=== PATIENT | male | born 1970 | race Caucasian/White ===

== ENCOUNTER 2018-01-26 14:53 | Emergency (ER) | payer OTHER, MEDICARE ==
[2018-01-26] MEDS ORDERED: DEXTROSE 50%-WATER 50 ML DISP.SYRIN IV ONE ×2 (15:32→16:05)
== END 2018-01-26 17:26 | disposition home or self-care (01) ==
LOC: EDH 14:53
DX: N47.2 Paraphimosis (principal); I50.9 Heart failure, unspecified; Z88.2 Allergy status to sulfonamides; Z88.0 Allergy status to penicillin; Z91.040 Latex allergy status; Z88.6 Allergy status to analgesic agent; Z21 Asymptomatic human immunodeficiency virus [HIV] infection status; Z72.0 Tobacco use
CPT/HCPCS: 54450; 99284; J7070 ×2

== ENCOUNTER → 2018-01-26 | Outpatient (CLI) | payer OTHER, MEDICARE ==
[~2018-01-26] MED LIST: ANDRO GEL; DUONEB IH; EMTR1TAB11 PO; ETRA200T PO; PRENATAL VITAMIN PO; RALT400T PO; SOMA6VIA SQ; TEMA15CA5 PO; VALA500T38 PO; ZOLP5TAB2 PO
== END | disposition home or self-care (01) ==
LOC: RAH 10:13
PROVIDERS: ATTEND Internal Medicine Gastroenterology
DX: R13.10 Dysphagia, unspecified (principal); R63.3 Feeding difficulties
CPT/HCPCS: G8996; G8997; G8998; 74230; 92611

== ENCOUNTER 2018-12-01 09:10 | Day surgery (SDC) | payer OTHER, MEDICARE ==
[~2018-12-01] VITALS: Ht 172.7 cm; Wt 74.9 kg
[~2018-12-01 09:10] MED LIST changes: +BOTULINUM TOXIN TYPE A 100 UNITS/VIAL INJ SCH; +SODIUM CHLORIDE 0.9% 1000ML 1,000 ML IV ONE
[2018-12-01] MEDS ORDERED: DRONABINOL (10:13)
[2018-12-01] MEDS ORDERED: [UNRECOGNIZED DRUG - OTHER] (10:13)
[2018-12-01] MEDS ORDERED: SOMATROPIN PO (10:13)
[2018-12-01] MEDS ORDERED: LIDOCAINE (10:13)
[2018-12-01] MEDS ORDERED: CITIRIZINE (10:13)
[2018-12-01] MEDS ORDERED: AMITREX (10:13)
[2018-12-01] MEDS ORDERED: TIVICAY (10:13)
[2018-12-01] MEDS ORDERED: MELA1TAB17 PO (10:13)
[2018-12-01 10:19] VITALS: BP 125/75
[2018-12-01] MEDS ORDERED: PROPOFOL 10 MG/ML 20ML VIAL IV ONE ×2 (10:26)
[2018-12-01 10:49] VITALS: BP 91/44
[2018-12-01 10:53] VITALS: BP 91/44
[2018-12-01 10:58] VITALS: BP 100/56
[2018-12-01 11:04] VITALS: BP 105/58
[2018-12-01 11:11] VITALS: BP 111/74
== END 2018-12-01 11:30 | disposition home or self-care (01) ==
LOC: DAH 09:10 → ENDO 09:10
PROVIDERS: ATTEND Internal Medicine
DX: K22.2 Esophageal obstruction (principal); K20.9 Esophagitis, unspecified; K31.89 Other diseases of stomach and duodenum; I11.0 Hypertensive heart disease with heart failure; I50.9 Heart failure, unspecified; K21.9 Gastro-esophageal reflux disease without esophagitis; F32.9 Major depressive disorder, single episode, unspecified; Z85.46 Personal history of malignant neoplasm of prostate; Z79.899 Other long term (current) drug therapy; Z98.890 Other specified postprocedural states; G47.30 Sleep apnea, unspecified; Z88.8 Allergy status to other drugs, medicaments and biological substances; Z88.2 Allergy status to sulfonamides; Z88.0 Allergy status to penicillin
CPT/HCPCS: 43236; 43239; 93005; A4606; J0585; J2704 ×2; J7030

== ENCOUNTER 2019-12-27 05:56 | Day surgery (SDC) | payer OTHER, MEDICARE ==
[~2019-12-27] VITALS: Ht 172.7 cm; Wt 73.5 kg
[~2019-12-27 05:56] MED LIST changes: +AMITREX; -BOTULINUM TOXIN TYPE A 100 UNITS/VIAL INJ SCH; +CITIRIZINE; +DRONABINOL; -ETRA200T PO; +LIDOCAINE; +MELA1TAB17 PO; -RALT400T PO; -SOMA6VIA SQ; +SOMATROPIN PO; -TEMA15CA5 PO; +TIVICAY; -VALA500T38 PO; +VALA500T42 PO; -ZOLP5TAB2 PO; +[UNRECOGNIZED DRUG - OTHER]
[2019-12-27 07:31] VITALS: BP 105/60
[2019-12-27] MEDS ORDERED: MV-M1TAB20 PO (07:43)
[2019-12-27] MEDS ORDERED: DARU1TAB PO (07:43)
[2019-12-27] MEDS ORDERED: SOMA6VIA SQ (07:43)
[2019-12-27] MEDS ORDERED: BOTULINUM TOXIN TYPE A 100 UNITS/VIAL INJ SCH (08:30)
[2019-12-27] MEDS ORDERED: PROPOFOL 10 MG/ML 20ML VIAL IV ONE (08:38)
[2019-12-27] MEDS ORDERED: IPRATROPIUM/ALBUTEROL SULFATE 3 ML SOLUTION IH ONE (09:05)
--- NOTE | 2019-12-27 09:15 | NUR ---
PT RECEIVED A DUO - NEBS TREATMENT PER PROTOCOL.
--- NOTE | 2019-12-27 09:30 | NUR ---
PT STEVE DUE NEBS WELL. PT LEFT VIA WHEELCHAIR IN PVT CAR, NO COMPLICATIONS UPON D/C. D/C INSTRUCTIONS GIVEN TO FAMILY FRIEND. V/S STABLE NO COMPLICATIONS.
== END 2019-12-27 09:30 | disposition home or self-care (01) ==
LOC: ENDO 05:56 → DAH 05:56 → ENDO 09:30
PROVIDERS: ATTEND Internal Medicine
DX: K22.2 Esophageal obstruction (principal); R13.10 Dysphagia, unspecified; K21.9 Gastro-esophageal reflux disease without esophagitis; F17.210 Nicotine dependence, cigarettes, uncomplicated; B20 Human immunodeficiency virus [HIV] disease; I11.0 Hypertensive heart disease with heart failure; I50.9 Heart failure, unspecified; F32.9 Major depressive disorder, single episode, unspecified; G47.30 Sleep apnea, unspecified; Z88.0 Allergy status to penicillin; Z88.2 Allergy status to sulfonamides; Z88.1 Allergy status to other antibiotic agents; Z88.5 Allergy status to narcotic agent; Z91.040 Latex allergy status; Z91.048 Other nonmedicinal substance allergy status; Z98.890 Other specified postprocedural states; Z82.49 Family history of ischemic heart disease and other diseases of the circulatory system; Z79.899 Other long term (current) drug therapy; Z83.3 Family history of diabetes mellitus; Z82.3 Family history of stroke; Z80.0 Family history of malignant neoplasm of digestive organs
CPT/HCPCS: 43236; 43239; 43249; 94640; A4215; A4221; A4222; A4223; A4606; A4620; A4663; J0585; J2704; J7030

== ENCOUNTER 2020-01-11 06:23 | Day surgery (SDC) | payer OTHER, MEDICARE ==
[~2020-01-11] VITALS: Ht 170.2 cm; Wt 70.3 kg
[~2020-01-11 06:23] MED LIST changes: -AMITREX; -ANDRO GEL; +CETI10TA57 PO; -CITIRIZINE; +DARU1TAB PO; -DRONABINOL; -DUONEB IH; -EMTR1TAB11 PO; -LIDOCAINE; -MELA1TAB17 PO; +MV-M1TAB20 PO; +PANT40TA25 PO; -PRENATAL VITAMIN PO; -VALA500T42 PO; -[UNRECOGNIZED DRUG - OTHER]
[2020-01-11] MEDS ORDERED: SODIUM CHLORIDE 0.9% 1000ML 1,000 ML IV ONE (06:29)
[2020-01-11 07:49] VITALS: BP 116/63
[2020-01-11] MEDS ORDERED: PROPOFOL 10 MG/ML 20ML VIAL IV ONE (08:53)
[2020-01-11 09:05] VITALS: BP 103/62
[2020-01-11 09:10] VITALS: BP 108/64
[2020-01-11 09:15] VITALS: BP 112/68
== END 2020-01-11 09:30 | disposition home or self-care (01) ==
LOC: DAH 06:23 → ENDO 06:23
PROVIDERS: ATTEND Internal Medicine Gastroenterology
DX: Z12.11 Encounter for screening for malignant neoplasm of colon (principal); K57.30 Diverticulosis of large intestine without perforation or abscess without bleeding; Z86.010 Personal history of colon polyps; I50.9 Heart failure, unspecified; I11.0 Hypertensive heart disease with heart failure; F32.9 Major depressive disorder, single episode, unspecified; K21.9 Gastro-esophageal reflux disease without esophagitis; G47.30 Sleep apnea, unspecified; K22.2 Esophageal obstruction; K58.9 Irritable bowel syndrome, unspecified; Z80.0 Family history of malignant neoplasm of digestive organs; B20 Human immunodeficiency virus [HIV] disease; Z85.46 Personal history of malignant neoplasm of prostate; Z98.890 Other specified postprocedural states; Z79.899 Other long term (current) drug therapy
CPT/HCPCS: A4215; A4221; A4222; A4223; A4606; A4615; A4663; G0105; J2704; J7030 ×2

== ENCOUNTER 2020-03-05 08:36 | Emergency (ER) | payer OTHER, MEDICARE | END 2020-03-05 09:26 | disposition home or self-care (01) | LOC: EDH 08:36 | DX: K14.5 Plicated tongue (principal); I50.9 Heart failure, unspecified; Z72.0 Tobacco use; Z88.6 Allergy status to analgesic agent; Z91.040 Latex allergy status; Z88.0 Allergy status to penicillin; Z88.2 Allergy status to sulfonamides | CPT/HCPCS: 74176 ==

== ENCOUNTER → 2020-03-05 | Outpatient (CLI) | payer OTHER, MEDICARE ==
[~2020-03-05] MED LIST changes: -SODIUM CHLORIDE 0.9% 1000ML 1,000 ML IV ONE
== END | disposition home or self-care (01) ==
LOC: RAH 07:52
PROVIDERS: ATTEND Internal Medicine Gastroenterology
DX: R10.32 Left lower quadrant pain (principal)
CPT/HCPCS: 74176

== ENCOUNTER 2020-03-17 11:09 | Emergency (ER) | payer OTHER, MEDICARE ==
[2020-03-17] MEDS ORDERED: ONDANSETRON ODT 4 MG TAB ONE (11:57)
[2020-03-17] MEDS ORDERED: MORPHINE SULFATE 4 MG/1ML SYG ONE (11:58)
== END 2020-03-17 12:18 | disposition home or self-care (01) ==
LOC: EDH 11:09
DX: H66.93 Otitis media, unspecified, bilateral (principal); B37.9 Candidiasis, unspecified; I50.9 Heart failure, unspecified; Z21 Asymptomatic human immunodeficiency virus [HIV] infection status; Z72.0 Tobacco use; Z88.6 Allergy status to analgesic agent; Z91.040 Latex allergy status; Z88.0 Allergy status to penicillin; Z88.2 Allergy status to sulfonamides
CPT/HCPCS: 96372; 99283; J2270

== ENCOUNTER 2020-09-04 08:32 | Day surgery (SDC) | payer OTHER, MEDICARE ==
[2020-09-04] VITALS (13 sets, daily range): BP systolic 69–112; BP diastolic 27–64
[~2020-09-04] VITALS: Ht 172.7 cm; Wt 68.0 kg
[~2020-09-04 08:32] MED LIST changes: -PANT40TA25 PO; +PANT40TA54 PO; +SODIUM CHLORIDE 0.9% 1000ML 1,000 ML IV ONE
[2020-09-04] MEDS ORDERED: BOTULINUM TOXIN TYPE A 100 UNITS/VIAL INJ SCH (09:00)
[2020-09-04] MEDS ORDERED: [UNRECOGNIZED DRUG - OTHER] PO (09:48)
[2020-09-04] MEDS ORDERED: PROPOFOL 10 MG/ML 20ML VIAL IV ONE (11:17)
[2020-09-04] MEDS ORDERED: MIDAZOLAM HCL 1 MG/ML 2ML VIAL ONE (11:17)
--- NOTE | 2020-09-04 11:45 | NUR ---
Pt received Pt received from GI lab via stretcher accompanied by UNIQUE Crock[place]. Pt with o2 via face mask at 10L/min. Monitors applied. BP hypotensive; pt grunting. pt was placed on reverse trendelenburg, infused fluids and performed jaw thrust manuever. Oral suctioning performed PRN. Pt began breathing in no distress. O2 sat remained at 100%. ZAK Duncan was called and made aware. [place] arrived and administered phenylephrine IV and opened fluids. BP cycling q1 minute. BP began rising and pt in no distress.
--- NOTE | 2020-09-04 12:30 | NUR ---
Pt monitored Pt continued to be assessed. BP wnl. Pt in no distress. Fiancee at bedside.
--- NOTE | 2020-09-04 13:10 | NUR ---
D/C Pt prepared for discharge. Pt awake and alert. [place]) continues at bedside. Pt asking procedure findings; were discussed with pt and ranch[place]. Verbal and written discharge instructions with f/u appointment info was given to both. They verbalized understanding. Pt was then taken to private vehicle via w/c for transportation home.
== END 2020-09-04 13:17 ==
LOC: DAH 08:32 → ENDO 08:32
PROVIDERS: ATTEND Internal Medicine Gastroenterology
DX: R19.7 Diarrhea, unspecified (principal); K22.2 Esophageal obstruction; K31.89 Other diseases of stomach and duodenum; K57.30 Diverticulosis of large intestine without perforation or abscess without bleeding; K64.0 First degree hemorrhoids; I11.0 Hypertensive heart disease with heart failure; I50.9 Heart failure, unspecified; K92.1 Melena; K62.89 Other specified diseases of anus and rectum; Z86.010 Personal history of colon polyps; K21.9 Gastro-esophageal reflux disease without esophagitis; K58.9 Irritable bowel syndrome, unspecified; F32.9 Major depressive disorder, single episode, unspecified; Z21 Asymptomatic human immunodeficiency virus [HIV] infection status; Z20.828 Contact with and (suspected) exposure to other viral communicable diseases
CPT/HCPCS: 36415; 43236; 43239; 43249; 45378; A4215; A4221; A4222; A4223; A4606; A4620; A4663; C9803; J0585; J2250; J2704; J7030; U0003